=== PATIENT | male | born 1980 | race Caucasian/White ===

== ENCOUNTER 2017-04-29 19:20 | Emergency (ER) | payer OTHER ==
--- NOTE | 2017-04-29 21:11 | ED Physician Chart ---
ED Chief Complaint/HPI - Patient Information Date Seen:: 04/29/17 Time Seen:: 20:30 Chief Complaint:: Right forearm redness, pain and swelling History of Present Illness:: 36 yo male has right forearm distal posterior focal erythema and itchiness for 5 days, pain and swelling for 2 days. The erythema and swelling has extended to right dorsal hand. Allergies:: Allergies Allergy/AdvReac Type Severity Reaction Status Date / Time No Known Allergies Allergy Verified 04/29/17 19:48 Vitals:: Vital Signs - 8 hr 04/29/17 04/29/17 04/29/17 19:30 20:28 21:01 Temp 98.1 F HR 77 70 73 RR 18 18 18 BP 124/66 117/68 117/68 O2 Sat % 96 94 97 Historian:: Patient ED Review of Systems - Review of Systems General/Constitutional: No fever Skin: Skin lesions Head: No headache Eyes: Pain ENT: No nasal drainage Neck: No neck pain Cardio Vascular: No chest pain Pulmonary: No SOB GI: No nausea, No vomiting G/U: No frequency Musculoskeletal: Other (right distal forearm pain) Psychiatric: No prior psych history Hematopoietic: No bruising Neurological: No headache ED Past Medical History - Past Medical History Past Medical History: No significant medical hx Surgical History: None Family Medical History - Family Member Mother History Unknown: Yes ED Physical Exam - Physical Examination Head: Atraumatic Eyes: PERRL, EOMI Other Skin comments:: Right distal posterior radial forearm focal erythema, swelling, warmness, firmness and tenderness. The erythema and swelling extend to right dorsal hand. There is no apparent abscess formation yet. Neck: Full ROM w/o pain Respiratory: Clear to Auscultation, No Wheeze/Rhonchi/Rales Cardio Vascular: RRR, No murmur, gallop, rubs, NL S1 S2 GI: No tenderness/rebounding/guarding Neuro/Psych: Alert/oriented Misc: Normal back ED Assessment - Assessment General Assessment: Right distal forearm cellulitis Assessment/Comments:: Rocephin 2g IM x 1 Keflex 500mg PO q6h #40 Follow up PCP or return to ER if pain and/or erythema become worse ED Septic Shock - . Is Septic Shock (SBP<90, OR Lactate>4 mmol\L) present?: No - <6hrs of presentation: Vital Signs: Vital Signs - 8 hr 10/03/17 10/03/17 10/03/17 19:30 20:28 21:01 Temp 98.1 F HR 77 70 73 RR 18 18 18 BP 124/66 117/68 117/68 O2 Sat % 96 94 97 ED Discharge Plan - Patient Disposition Admit/Discharge/Transfer: PT DISCHARGED HOME Condition at Disposition: Improved Instructions: Cellulitis
== END 2017-04-29 21:08 | disposition home or self-care (01) ==
LOC: ER 19:20
DX: L03.113 Cellulitis of right upper limb (principal)
CPT/HCPCS: 99284; 96372 ×2; 36415; 87040 ×2; J1885; J0696; Z7502

== ENCOUNTER 2017-12-22 12:40 | Emergency (ER) | payer MEDICAID, OTHER ==
--- NOTE | 2017-12-22 13:18 | ED Physician Chart ---
ED Chief Complaint/HPI - Patient Information Date Seen:: 12/22/17 Time Seen:: 13:18 Chief Complaint:: EPIGASTRIC PAIN AND ALCOHOL WITHDRAWL. History of Present Illness:: THIS 37 YEAR OLD MALE HAS BEEN DFRINKING ALCOHOL HEAVILY FOR THE PAST 3 TO 4 DAYS, HE AWOKE TODAY WITH PAIN IN THE EPIGASTRIC THAT RADIATES TO HIS BACK. HE RATES THE SEVERITY OF PAINEDIT 10 OVER 10 AND THE PAIN HAS BEEN ACCOMPANIED MY AN ESTIMATEDSEVEN EPISODES OF VOMITINGAND FIVE EPISODES OF DIARRHEA.THE PATIENT HAD NO HEMATEMESISAND HE WAS UNCERTAINIF HE HAD ANY BLACK BOWEL MOVEMENTS. THE CHARACTER OF THE PAIN IS BURNING AND IT IS MADE WORSE BY VOMITING. HE ALSO COMPLAINS OF SWEATING AND TERMERS. HIS PMD HAS PROVIDED THE PATIENT WITH LIBRIUM 25 MG FOR WITHDRAWAL SYMPTOMS (BUT HE HAS RUN OUT OF HIS SUPPLY). Allergies:: Allergies Allergy/AdvReac Type Severity Reaction Status Date / Time No Known Allergies Allergy Verified 04/29/17 19:48 Vitals:: Vital Signs - 8 hr 12/22/17 12:42 Temp 98.2 F HR 81 RR 18 BP 138/101 O2 Sat % 96 Review:: Nurse's Note Reviewed (HARD COPY OF TRIAGE SHEET.) ED Review of Systems - Review of Systems General/Constitutional: No fever, No chills, Weakness (GENERALIZED WEAKNEXX), Diaphoresis, Loss of appetite Skin: No skin lesions, No rash, No bruising, Other Head: Headache, Light headed Eyes: Acuity change, No pain, No diplopia ENT: No earache, No sore throat, No tinnitus Neck: No neck pain, No swelling, No thyromegaly, No stiffness, No mass noted Cardio Vascular: No chest pain, No palpitations, No PND, No orthopnea, No edema Pulmonary: No SOB, No cough, No sputum, No wheezing GI: Nausea, No vomiting, No diarrhea, Pain, No constipation, No hematemesis G/U: No dysuria, No frequency, No nacturia Musculoskeletal: Bone or joint pain, No bone or joint pain, Back pain, No muscle pain Endocrine: No polyuria, No polydipsia Psychiatric: No prior psych history, No suicidal ideation, No homicidal ideation , No auditory hallucination, No visual hallucination Hematopoietic: No lymphadenopathy Allergic/Immuno: No urticaria, No angioedema Neurological: No syncope, Weakness, Paresthesia, Headache, No seizure, Dizziness , No dizziness, No confusion, No vertigo Family Medical History - Family Member Mother History Unknown: Yes ED Physical Exam - Physical Examination General/Constitutional: Awake, Well-developed, well-nourished, Alert, GCS 15, Ambulatory Other Gen/Cons comments:: HE CONTINUES TO COMPLAIN OF SEVERE ABDOMINAL PAIN AND CONTINUED NAUSEA. STRONG ODOR OF ALCOHOL. Head: Atraumatic Eyes: PERRL Other Eyes comments:: HYPEREMIA OF CONJUNCTIVA. AND EOM WITH NYSTAGMUS ON LATERAL GAZE. Skin: No rash, No ecchymosis, Well hydrated, No lymphadenopathy Other Skin comments:: Diaphoretic ENMT: External ears, nose nl, TM canals nl, Nasal exam nl, Lips, teeth, gums nl , Oropharynx nl Neck: Nontender, Full ROM w/o pain, No JVD, No nuchal rigidity, No mass, No stridor Respiratory: Nl effort/Exclusion, Clear to Auscultation, No Wheeze/Rhonchi/Rales Cardio Vascular: RRR, No murmur, gallop, rubs, NL S1 S2 (NO TACHYCARDIA) GI: No hernia, Normal BS's, Nondistended, No McBurney tenderness Other GI comments:: SOFT WITH MODERATE EPIGASTRIC GUARDING ABD TENDERNESS. BOWL SOUNDS PRESENT. NO LIVER OR SPLEEN PALPABLE. : No CVA tenderness Extremities: No tenderness or effusion, normal strength in all extremities, No edema, Normal digits & nails Neuro/Psych: Alert/oriented, DTR's symmetric, Normal sensory exam, Normal motor strength, Mood normal, Normal gait, No focal deficits Other Neuro/Psych comments:: MILD ATAXIA Misc: Normal back, No paraspinal tenderness ED Labs/Radiology/EKG Results - Lab Results Results: Laboratory Tests 12/22/17 12/22/17 12/22/17 14:09 14:09 14:09 WBC 4.1 L RBC 4.54 Hgb 15.2 Hct 44.2 MCV 97.4 MCH 33.6 H MCHC Differential 34.5 RDW 12.9 Plt Count 140 L MPV 8.0 Neutrophils % 54.8 Lymphocytes % 36.8 Monocytes % 7.1 Eosinophils % 0.9 Basophils % 0.4 Amylase 103 Lipase 19 CBC: UNREMARKABLE IN NO LEUKOCYTOSIS OR ANEMIA. BOTH AMYLASE AND LIPASE WERE WITHIN NORMAL PARAMETERS MAKING PANCREATITIS UNLIKELY ED Assessment - Assessment General Assessment: CASE SUMMARY: PT HAD BEEN DOING SOME HEAVY DRINKING AND CAM TO ER FOR EPIGASTRIC PAIN, NAUSEA, VOMITING AND DIARRHEA. ON EXAM PT HAD EPIGASTRIC TENDERNESS. LABS WERE USED TO RULE OUT PANCREATITIS. HIS SYMTOMS WERE ADDRESSED WITH IV NORMAL SALINE, IV ZOFRAN, AND IV MORPHINE. PT HAD ALMOST COMPLETE RELIEF IF HIS SYMPTOMS. HE WAS PROVIDED WITH REFERALS FOR ALCOHOL REHAB PROGRAMS AND WAS ENCOURAGED TO ATTEND SOME AA MEETINGS. SHE WAS TOLD TO RETURN TO THE ER IF HER SYMPTOMS RETURNED. MDM DDX FOR EPIGASTRIC PAIN: NOT PANCREATISIS BASED ON NORMAL LIPASE AND AMYLASE LEVELS. NOT PEPTIC ULCER PERFORATIONBASED ON PHYSICAL EXAM. ED Septic Shock - . Is Septic Shock (SBP<90, OR Lactate>4 mmol\L) present?: No - <6hrs of presentation: Vital Signs: Vital Signs - 8 hr 12/22/17 12:42 Temp 98.2 F HR 81 RR 18 BP 138/101 O2 Sat % 96 ED Reassessment (Disposition) - Reassessment Reassessment Condition:: Improved - Diagnosis Diagnosis:: ALCOHOLIC GASGTRITIS THE PT WAS GIVEN A RX FOR LIBRIUM 25 MG TO TAKE FOR TREMOR OR ALCOHOL WITHDRAWAL SYMPTOMS. HE WAS GIVEN THE USUAL PRECAUTIONS REGARDING DRIVING OR ACTIVITIES REQUIRING QLERTNESS. A SECOND RX WAS PROVIDED FOR NAUSEA/VOMITING ZOFRAN 8 MG TABLETS. HE WAS FURTHER ADVISED TO AVOID NSAIDS. ED Discharge Plan - Patient Disposition Admit/Discharge/Transfer: PT DISCHARGED HOME Instructions: Gastritis, Adult, [id number], Alcohol Withdrawal, Alcohol Problems
[2017-12-22] MEDS ORDERED: Morphine Sulfate 4 mg/mL 1mL Syr IVP ONE (13:36)
[2017-12-22] MEDS ORDERED: Sodium Chloride 0.9% 1,000 ML IV SCH (13:45)
[2017-12-22] MEDS ORDERED: Morphine Sulfate 4 mg/mL 1mL Syr ONE ×2 (14:21)
[2017-12-22 14:43] LABS: % BASOPHILS 0.4 % (0.0-2.0); % EOSINOPHILS 0.9 % (0.0-5.0); % LYMPHOCYTES 36.8 % (20.0-50.0); % MONOCYTES 7.1 % (2.0-10.0); % NEUTROPHILS 54.8 % (40.0-80.0); HEMATOCRIT 44.2 % (41.0-60); HEMOGLOBIN 15.2 gm/dL (12-16); LYMPHOCYTE ABSOLUTE 1.5 Th/cmm (1.5-3.0); MEAN CELL VOLUME 97.4 fl (80-99); MEAN CORPUSCULAR HEMOGLOBIN 33.6 pg (26.0-30.0); MEAN CORPUSCULAR HGB CONC 34.5 pg (28.0-36.0); MONOCYTE ABSOLUTE 0.3 Th/cmm (0.3-1.0); NEUTROPHILE ABSOLUTE 2.3 Th/cmm (1.8-8.0); PLATELET COUNT 140 Th/cmm (150-400); RED BLOOD COUNT 4.54 Mil/cmm (4.30-5.70); RED CELL DISTRIBUTION WIDTH 12.9 % (11.5-20.0); WHITE BLOOD COUNT 4.1 Th/cmm (4.8-10.8)
== END 2017-12-22 16:45 | disposition home or self-care (01) ==
LOC: ER 12:40
DX: K29.20 Alcoholic gastritis without bleeding (principal)
CPT/HCPCS: 99284; 96374; 96375; 36415; 85025; 82150; 83690; J2405; J7030; Z7502; Z7610

== ENCOUNTER 2018-03-04 11:48 | Inpatient (IN) | payer MEDICAID ==
[2018-03-04] MEDS ORDERED: Sodium Chloride 0.9% 1,000 ML IV ONE (12:01)
--- NOTE | 2018-03-04 12:07 | ED Physician Chart ---
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 Pain, A/N/V/D/C, bleeding, fever, chills, or urinary s/s Allergies:: Allergies Allergy/AdvReac Type Severity Reaction Status Date / Time No Known Allergies Allergy Verified 04/29/17 19:48 Historian:: Patient, EMS Review:: Nurse's Note Reviewed, EMS run form Reviewed ED Review of Systems - Review of Systems General/Constitutional: No fever, No chills, No weight loss, No weakness, No diaphoresis, No edema, No loss of appetite Skin: No skin lesions, No rash, No bruising Head: No headache, No light-headedness Eyes: No loss of vision, No pain, No diplopia ENT: No earache, No nasal drainage, No sore throat, No tinnitus Neck: No neck pain, No swelling, No thyromegaly, No stiffness, No mass noted Cardio Vascular: No chest pain, No palpitations, No PND, No orthopnea, No edema Pulmonary: No SOB, No cough, No sputum, No wheezing GI: No nausea, No vomiting, No diarrhea, No pain, No melena, No hematochezia, No constipation, No hematemesis G/U: No dysuria, No frequency, No hematuria, No nacturia Musculoskeletal: No bone or joint pain, No back pain, No muscle pain Endocrine: No polyuria, No polydipsia Psychiatric: No prior psych history, No depression, No anxiety, No suicidal ideation, No homicidal ideation, No auditory hallucination, No visual hallucination Hematopoietic: No bruising, No lymphadenopathy Allergic/Immuno: No urticaria, No angioedema Neurological: No syncope, No focal symptoms, No weakness, No paresthesia, No headache, No seizure, No dizziness, No confusion, No vertigo ED Past Medical History - Past Medical History Obtainable: Yes Past Medical History: No significant medical hx Family History: HTN Social History: Smoker, Alcohol, No Drug Use, Single Surgical History: None Psychiatricy History: None Medication: Reviewed Family Medical History - Family Member Mother History Unknown: Yes ED Physical Exam - Physical Examination General/Constitutional: Awake, Well-developed, well-nourished, Alert, No distress, GCS 15, Non-toxic appearing, Ambulatory Head: Atraumatic Eyes: Lids, conjuctiva normal, PERRL, EOMI Skin: Nl inspection, No rash, No skin lesions, No ecchymosis, Well hydrated, No lymphadenopathy ENMT: External ears, nose nl, TM canals nl, Nasal exam nl, Lips, teeth, gums nl , Oropharynx nl, Tonsils nl Neck: Nontender, Full ROM w/o pain, No JVD, No nuchal rigidity, No bruit, No mass, No stridor Respiratory: Nl effort/Exclusion, Clear to Auscultation, No Wheeze/Rhonchi/Rales Cardio Vascular: RRR, No murmur, gallop, rubs, NL S1 S2, Carotid/Femoral/Distal pulses equal bilaterally GI: No tenderness/rebounding/guarding, No organomegaly, No hernia, Normal BS's, Nondistended, No mass/bruits, No McBurney tenderness, Rectum exam nl : No CVA tenderness Extremities: No tenderness or effusion, Full ROM, normal strength in all extremities, No edema, Normal digits & nails Neuro/Psych: Alert/oriented, DTR's symmetric, Normal sensory exam, Normal motor strength, Judgement/insight normal, Mood normal, Normal gait, No focal deficits Misc: Normal back, No paraspinal tenderness ED Labs/Radiology/EKG Results - Lab Results Comments:: Reviewed - Radiology Results Comments:: NAD - EKG Interpretations EKG Time:: 12:55 Rate & Rhythm: 103; ST; PAT Comments:: RBBB; T-Wave Inversions ED Septic Shock - . Is Septic Shock (SBP<90, OR Lactate>4 mmol\L) present?: No ED Reassessment (Disposition) - Reassessment Reassessment Condition:: Improved - Diagnosis Diagnosis:: Dx: ALOC; AMS; ETOH Abuse and Withdrawal; Hyponatremia; Tachycardia; Cardiac Arrythmias; Myocardial Ischemia; Alcohol Intoxication - Aftercare/Follow up Instructions Aftercare/Follow-Up Instructions:: Counseled pt regarding lab results/diagnosis & need follow up, Counseled pt & family regarding lab results/diagnosis & need follow up - Patient Disposition Discharge/Transfer:: Acute Care w/in this hosp Accepting Physician:: Dr. Arnold Time Called:: [phone] Time Responded:: 13:45 Admitted to:: Telemetry Spoke to:: Dr. Arnold Admitting Medical Physician:: Dr. Arnold Condition at Disposition:: Stable, Improved
[2018-03-04] MEDS ORDERED: Multivitamin Inj 10 ML, Thiamine HCL 100 MG, Magnesium Sulfate 2 GM, Folic Acid 1 MG in... IV ONE (13:00)
[2018-03-04 13:13] LABS: ALB/GLOB RATIO 1.9 (1.0-1.8); ALBUMIN 4.7 gm/dL (4.2-5.5); ALKALINE PHOSPHATASE 89 U/L (34-104); ANION GAP 18.7 (7.0-16.0); BILIRUBIN,TOTAL 1.1 mg/dL (0.3-1.0); BUN - UREA NITROGEN 16 mg/dL (7-25); CALCIUM SERUM 8.9 mg/dL (8.6-10.3); CARBON DIOXIDE 21.9 mEq/L (21.0-31.0); CHLORIDE 95 mEq/L (98-107); CREATININE - SERUM 0.8 mg/dL (0.7-1.3); GFR AFRICAN-AMERICAN > 60.0 ml/min (>90); GFR NON AFRICAN-AMERICAN > 60.0 ml/min; GLUCOSE 77 mg/dL (70-105); POTASSIUM SERUM 3.6 mEq/L (3.5-5.1); SGOT 186 U/L (13-39); SGPT/ALT 109 U/L (7-52); SODIUM SERUM 132 mEq/L (136-145); TOTAL PROTEIN,SERUM 7.2 gm/dL (6.0-8.3)
[2018-03-04 14:49] LABS: AMPHETAMINE URINE NEGATIVE (NEGATIVE); BARBITURATES URINE NEGATIVE (NEGATIVE); BENZODIAZEPINES QUAL URINE NEGATIVE (NEGATIVE); CANNABINOID THC NEGATIVE (NEGATIVE); COCAINE METABOLITE QUAL URINE NEGATIVE (NEGATIVE); METHADONE URINE NEGATIVE (NEGATIVE); METHAMPHETAMINES QUAL URINE NEGATIVE (NEGATIVE); OPIATES (MORPHINE) QUAL. URINE NEGATIVE (NEGATIVE); PHENCYCLIDINE (PCP) URINE NEGATIVE (NEGATIVE); TRICYCLICS (TCA) QUAL. URINE NEGATIVE (NEGATIVE)
[2018-03-04 16:37] LABS: WHITE BLOOD COUNT 5.6 Th/cmm (4.8-10.8)
[2018-03-04 16:38] LABS: HEMOGLOBIN 17.5 gm/dL (12-16); MEAN CELL VOLUME 98.9 fl (80-99); MEAN CORPUSCULAR HEMOGLOBIN 33.9 pg (26.0-30.0); MEAN CORPUSCULAR HGB CONC 34.3 pg (28.0-36.0); MEAN PLATELET VOLUME 9.2 fl; PLATELET COUNT 126 Th/cmm (150-400); RED BLOOD COUNT 5.16 Mil/cmm (4.30-5.70); RED CELL DISTRIBUTION WIDTH 12.7 % (11.5-20.0)
[2018-03-04 16:43] LABS: % BASOPHILS 1.5 % (0.0-2.0); % EOSINOPHILS 0.2 % (0.0-5.0); % MONOCYTES 8.6 % (2.0-10.0); % NEUTROPHILS 61.7 % (40.0-80.0)
--- NOTE | 2018-03-04 16:49 | History and Physical ---
History of Present Illness - HPI Chief Complaint: Tremors HPI: 37 y/o male who presents to [facility] for suddent onset of tremors and shakiness lasting for the past 3 hours. Patient presents with a history of ETOH abuse and his last drink was 12 hours ago. pt denies trauma, H /As, neck pain, C/P, cough, SOB, Abd. Pain, A/N/V/D/C, bleeding, fever, chills, or urinary s/s In the ER patient had labwork done which revealed the following..... WBC 5.6 H/H 17.5/51.0 platelets 126K Na 132 K 3.6 Bun/Cr 16/0.8 glu 77 AST 186 ALT 106 Alk Phos 89 UDS + ETOH 156 Vital Signs: Last Vital Signs Temp 98.3 F 03/04/18 15:31 Pulse 84 03/04/18 15:31 Resp 16 03/04/18 15:31 BP 146/94 03/04/18 15:31 Pulse Ox 99 03/04/18 15:31 Past Medical History Cardiovascular: Report: No Pertinent Hx Pulmonary: Report: No Pertinent Hx TRAFFIC CONTROL FLAGGER: Report: No Pertinent Hx GI: Report: No Pertinent Hx Psych: Report: No Pertinent Hx Musculoskeletal: Report: No Pertinent Hx Rheumatologic: Report: No pertinent Hx Infectious Disease: Report: No Pertinent Hx Renal/: Report: No Pertinent Hx Endocrine: Report: No Pertinent Hx Dermatology: Report: No Pertinent Hx - Past Surgical History Past Surgical History: No pertinent Hx Family Medical History - Family Member Mother History Unknown: Yes Social History Smoke: No Alcohol: Other (H/o Alcohol abuse) Drugs: None Lives: Alone - Medications Home Medications: Home Medication Medication Instructions Recorded Type NK [No Home Meds] 03/04/18 History - Allergies Allergies/Adverse Reactions: Allergies Allergy/AdvReac Type Severity Reaction Status Date / Time No Known Allergies Allergy Verified 04/29/17 19:48 Review of Systems - Review of Systems Constitutional: Report: No Significant Eyes: Report: No Significant ENT: Report: No Significant Respiratory: Report: No Significant Cardiovascular: Report: No Significant Gastrointestinal: Report: No Significant Genitourinary: Report: No Significant Musculoskeletal: Report: No Significant Skin: Report: No Significant Neurological: Report: No Significant Physical Exam - Physical Exam HEENT: Report: Ears Nose Throat within normal limits, Pharnyx within normal limits Neck: Report: Within normal limits Cardiovascular Systems: Report: +s1/s2 noted, Regular, Rate and Rhythm Respiratory: Report: Breath Sounds are within normal limits Abdomen: Report: Non-tender to palpation Back: Report: Inspection of back is within normal limits. Extremities: Report: Non-tender to palpation. Skin: Report: Color of skin is within normal limits - Lab Results All Lab Results last 24 hours: Laboratory Results - last 24 hr 03/04/18 03/04/18 03/04/18 12:13 12:13 14:04 WBC 5.6 RBC 5.16 Hgb 17.5 Hct 51.0 MCV 98.9 MCH 33.9 H MCHC Differential 34.3 RDW 12.7 Plt Count 126 L MPV 9.2 Neutrophils % 61.7 Lymphocytes % 28.0 Monocytes % 8.6 Eosinophils % 0.2 Basophils % 1.5 Sodium 132 L Potassium 3.6 Chloride 95 L Carbon Dioxide 21.9 Anion Gap 18.7 H BUN 16 Creatinine 0.8 Est GFR ( Amer) > 60.0 Est GFR (Non-Af Amer) > 60.0 BUN/Creatinine Ratio 20.0 Glucose 77 Calcium 8.9 Total Bilirubin 1.1 H AST 186 H ALT 109 H Alkaline Phosphatase 89 Total Protein 7.2 Albumin 4.7 Globulin 2.5 Albumin/Globulin Ratio 1.9 H Urine Opiates Screen NEGATIVE Urine Methadone Screen NEGATIVE Ur Barbiturates Screen NEGATIVE Ur Tricyclics Screen NEGATIVE Ur Phencyclidine Scrn NEGATIVE Amphetamines Screen NEGATIVE U Methamphetamines Scrn NEGATIVE U Benzodiazepines Scrn NEGATIVE U Cocaine Metab Screen NEGATIVE U Cannabinoids Screen NEGATIVE Ethyl Alcohol 151 H - Assessment Assessment: Current Active Problems Problem Status Onset ABDOMINAL PAIN, ANXIETY AND SHAKINESS Acute Alcohol withdrawals ETOH abuse hyponatremia hepatitis - Plan Plan: Will keep patient NPO order IV fluids Ativan IV PRN agitation repeat labwork tomorrow ETOH level in the morning
[2018-03-04 16:52] VITALS: BP 135/88
[2018-03-04] MEDS: D5-0.9%NS 1,000 ML IV SCH (22:39)
[2018-03-05 05:00] LABS: % BASOPHILS 0.4 % (0.0-2.0); % EOSINOPHILS 1.9 % (0.0-5.0); % LYMPHOCYTES 41.3 % (20.0-50.0); % MONOCYTES 10.7 % (2.0-10.0); % NEUTROPHILS 45.7 % (40.0-80.0); EOSINOPHILE ABSOLUTE 0.1 Th/cmm (0.1-0.4); HEMATOCRIT 47.8 % (41.0-60); HEMOGLOBIN 16.1 gm/dL (12-16); LYMPHOCYTE ABSOLUTE 1.5 Th/cmm (1.5-3.0); MEAN CELL VOLUME 96.5 fl (80-99); MEAN CORPUSCULAR HEMOGLOBIN 32.6 pg (26.0-30.0); MEAN CORPUSCULAR HGB CONC 33.8 pg (28.0-36.0); MEAN PLATELET VOLUME 8.6 fl; MONOCYTE ABSOLUTE 0.4 Th/cmm (0.3-1.0); NEUTROPHILE ABSOLUTE 1.7 Th/cmm (1.8-8.0); PLATELET COUNT 105 Th/cmm (150-400); RED BLOOD COUNT 4.95 Mil/cmm (4.30-5.70); RED CELL DISTRIBUTION WIDTH 12.8 % (11.5-20.0); WHITE BLOOD COUNT 3.7 Th/cmm (4.8-10.8)
[2018-03-05 05:47] LABS: ALB/GLOB RATIO 1.8 (1.0-1.8); ALKALINE PHOSPHATASE 70 U/L (34-104); ANION GAP 12.2 (7.0-16.0); BILIRUBIN,TOTAL 1.8 mg/dL (0.3-1.0); BUN - UREA NITROGEN 13 mg/dL (7-25); CALCIUM SERUM 8.2 mg/dL (8.6-10.3); CARBON DIOXIDE 25.6 mEq/L (21.0-31.0); CHLORIDE 100 mEq/L (98-107); CREATININE - SERUM 0.8 mg/dL (0.7-1.3); GFR AFRICAN-AMERICAN > 60.0 ml/min (>90); GFR NON AFRICAN-AMERICAN > 60.0 ml/min; GLUCOSE 85 mg/dL (70-105); POTASSIUM SERUM 3.8 mEq/L (3.5-5.1); SGOT 104 U/L (13-39); SGPT/ALT 79 U/L (7-52); SODIUM SERUM 134 mEq/L (136-145); TOTAL PROTEIN,SERUM 6.2 gm/dL (6.0-8.3)
[2018-03-05 06:16] LABS: INR 1.32 (0.5-1.4); PROTHROMBIN TIME (TEST) 13.5 SECONDS (9.5-11.5)
[2018-03-05 12:19] LABS: HEP A AB IGM Negative (Negative); HEP B CORE IGM Negative (Negative); HEP B SURFACE AG QL Negative (Negative); HEP C ANTIBODY 0.1 s/co ratio (0.0-0.9)
[2018-03-05] MEDS ORDERED: Diphenoxylate/Atropine 2.5mg Tab PO PRN (14:31)
[2018-03-05] MEDS: D5-0.9%NS 1,000 ML IV SCH (22:56)
--- NOTE | 2018-03-06 05:51 | General Progress Note ---
Subjective - Review of Systems Service Date: 03/06/18 Subjective: Patient was seen and examined. Complains of some epigastric pain. has some tremors. Unable to sleep at night. Objective - Results Result Diagrams: 03/05/18 04:30 03/05/18 04:30 Recent Labs: Laboratory Last Values WBC 3.7 Th/cmm (4.8-10.8) L 03/05/18 04:30 RBC 4.95 Mil/cmm (4.30-5.70) 03/05/18 04:30 Hgb 16.1 gm/dL (12-16) 03/05/18 04:30 Hct 47.8 % (41.0-60) 03/05/18 04:30 MCV 96.5 fl (80-99) 03/05/18 04:30 MCH 32.6 pg (26.0-30.0) H 03/05/18 04:30 MCHC Differential 33.8 pg (28.0-36.0) 03/05/18 04:30 RDW 12.8 % (11.5-20.0) 03/05/18 04:30 Plt Count 105 Th/cmm (150-400) L 03/05/18 04:30 MPV 8.6 fl 03/05/18 04:30 Neutrophils % 45.7 % (40.0-80.0) 03/05/18 04:30 Lymphocytes % 41.3 % (20.0-50.0) 03/05/18 04:30 Monocytes % 10.7 % (2.0-10.0) H 03/05/18 04:30 Eosinophils % 1.9 % (0.0-5.0) 03/05/18 04:30 Basophils % 0.4 % (0.0-2.0) 03/05/18 04:30 PT 13.5 SECONDS (9.5-11.5) H 03/05/18 05:45 INR 1.32 (0.5-1.4) 03/05/18 05:45 Sodium 134 mEq/L (136-145) L 03/05/18 04:30 Potassium 3.8 mEq/L (3.5-5.1) 03/05/18 04:30 Chloride 100 mEq/L (98-107) 03/05/18 04:30 Carbon Dioxide 25.6 mEq/L (21.0-31.0) 03/05/18 04:30 Anion Gap 12.2 (7.0-16.0) 03/05/18 04:30 BUN 13 mg/dL (7-25) 03/05/18 04:30 Creatinine 0.8 mg/dL (0.7-1.3) 03/05/18 04:30 Est GFR ( Amer) > 60.0 ml/min (>90) 03/05/18 04:30 Est GFR (Non-Af Amer) > 60.0 ml/min 03/05/18 04:30 BUN/Creatinine Ratio 16.3 03/05/18 04:30 Glucose 85 mg/dL (70-105) 03/05/18 04:30 Calcium 8.2 mg/dL (8.6-10.3) L 03/05/18 04:30 Total Bilirubin 1.8 mg/dL (0.3-1.0) H 03/05/18 04:30 AST 104 U/L (13-39) H 03/05/18 04:30 ALT 79 U/L (7-52) H 03/05/18 04:30 Alkaline Phosphatase 70 U/L (34-104) 03/05/18 04:30 Total Protein 6.2 gm/dL (6.0-8.3) 03/05/18 04:30 Albumin 4.0 gm/dL (4.2-5.5) L 03/05/18 04:30 Globulin 2.2 gm/dL 03/05/18 04:30 Albumin/Globulin Ratio 1.8 (1.0-1.8) 03/05/18 04:30 Urine Opiates Screen NEGATIVE (NEGATIVE) 03/04/18 14:04 Urine Methadone Screen NEGATIVE (NEGATIVE) 03/04/18 14:04 Ur Barbiturates Screen NEGATIVE (NEGATIVE) 03/04/18 14:04 Ur Tricyclics Screen NEGATIVE (NEGATIVE) 03/04/18 14:04 Ur Phencyclidine Scrn NEGATIVE (NEGATIVE) 03/04/18 14:04 Amphetamines Screen NEGATIVE (NEGATIVE) 03/04/18 14:04 U Methamphetamines Scrn NEGATIVE (NEGATIVE) 03/04/18 14:04 U Benzodiazepines Scrn NEGATIVE (NEGATIVE) 03/04/18 14:04 U Cocaine Metab Screen NEGATIVE (NEGATIVE) 03/04/18 14:04 U Cannabinoids Screen NEGATIVE (NEGATIVE) 03/04/18 14:04 Ethyl Alcohol < 10 mg/dL (0-10) 03/05/18 04:30 Hepatitis A IgM Ab Negative (Negative) 03/04/18 17:15 Hep Bs Antigen Negative (Negative) 03/04/18 17:15 Hep B Core IgM Ab Negative (Negative) 03/04/18 17:15 Hepatitis C Antibody 0.1 s/co ratio (0.0-0.9) 03/04/18 17:15 - Physical Exam Vitals and I&O: Vital Signs Temp 97.7 F 03/06/18 04:00 Pulse 67 03/06/18 04:00 Resp 18 03/06/18 04:00 BP 108/72 03/06/18 04:00 Pulse Ox 98 03/06/18 04:00 Intake & Output 03/05/18 03/05/18 03/06/18 06:59 18:59 06:59 Intake Total 2800 200 Balance 2800 200 Weight (lbs) 86.183 kg 86.183 kg 86.455 kg Intake: Intake, IV Amount 1000 D5-0.9%Ns 1,000 ml @ 50 1000 mls/hr IV .Q20H KEY Rx#: [id number] Oral 1800 200 Other: # Voids 4 5 3 # Bowel Movements 3 Weight Source Bedscale Bedscale Bedscale Active Medications: Current Medications Diazepam (Valium) 5 mg PO DAILY PRN; Protocol PRN Reason: Agitation Stop: 05/04/18 06:04 Last Admin: 03/05/18 08:19 Dose: 5 mg Diphenoxylate HCl/Atropine (Lomotil) 2.5 tab PO TID PRN PRN Reason: Diarrhea Stop: 05/04/18 14:30 Last Admin: 03/05/18 15:02 Dose: 1 tab Dextrose/Sodium Chloride (D5-0.9%Ns) 1,000 mls @ 50 mls/hr IV .Q20H KEY Stop: 05/03/18 16:16 Last Admin: 03/05/18 22:56 Dose: 50 mls/hr Lorazepam (Ativan) 1 mg IVP Q4HR PRN; Protocol PRN Reason: Anxiety Stop: 10/07/18 16:16 Last Admin: 03/05/18 21:30 Dose: 1 mg Ondansetron HCl (Zofran) 4 mg IV Q4H PRN PRN Reason: Nausea / Vomiting Stop: 05/04/18 06:04 Last Admin: 03/05/18 08:19 Dose: 4 mg General: Alert, Oriented x3 HEENT: Atraumatic, PERRLA, EOMI Neck: Supple, JVD Cardiovascular: Regular rate, Normal S1, Normal S2 Lungs: Clear to auscultation Abdomen: Bowel sounds, Soft, no Tender Extremities: no Clubbing, no Cyanosis, no Edema Neurological: Normal gait, Normal speech - Procedures Procedures: Procedures Procedure Code Date DRAIN EXTERNAL EAR LESION 98518 06/25/96 EXTERNAL EAR INCIS NEC 18.06/25/96 Assessment/Plan - Problem List Patient Problems: All Active Problems ABDOMINAL PAIN, ANXIETY AND SHAKINESS (Acute) - Assessment Assessment: Current Active Problems Problem Status Onset ABDOMINAL PAIN, ANXIETY AND SHAKINESS Acute Alcohol withdrawals ETOH abuse hyponatremia alcoholic hepatitis - Plan Plan: regular diet Ativan PO will add Diazepam ETOH level now normal
[2018-03-06] MEDS: D5-0.9%NS 1,000 ML IV SCH (09:53)
--- NOTE | 2018-03-08 08:34 | Discharge Summary ---
DATE OF DISCHARGE: 03/06/2018 PRELIMINARY DIAGNOSES: 1. Alcohol abuse. 2. Alcohol withdrawal. 3. Hyponatremia. 4. Alcoholic hepatitis. DISCHARGE DIAGNOSES: 1. Alcohol abuse. 2. Alcohol withdrawal. 3. Hyponatremia. 4. Alcoholic hepatitis. BRIEF HISTORY OF PRESENT ILLNESS: This is a 37-year-old male who presents to [facility] ER for sudden onset of tremors and shakiness lasting for the past 3 hours. The patient has a history of alcohol abuse. His last drink was about 12 hours ago. Denied any trauma, any falls, any headaches. Denies any neck pain, chest pain, shortness of breath, abdominal pain, nausea, vomiting, diarrhea, or constipation. Denies any bleeding, fever or chills. The patient was initially evaluated in the ER and seen by the ER physician. Lab work initially came back a white count normal at 5.6, hemoglobin 17.5, hematocrit 51, and platelets 126. Sodium was 132, potassium 3.6, BUN and creatinine were 16/0.8, and glucose 77. His AST was 186, ALT was 106, alkaline phosphatase 89. Urine drug screen was negative. His alcohol level was 156. The patient subsequently admitted for alcohol intoxication presenting with alcohol withdrawals. HOSPITAL COURSE: The patient improved during his hospital stay, repeat lab work done showed that his alcohol level back to normal, less than 10. Liver enzymes slowly improved with AST beginning at 186 and had dropped down to 104, ALT was 109 initially, now 79. The patient was given Ativan for withdrawal along with Librium to long-acting for tremors. The patient was able to tolerate a regular diet without any nausea and vomiting, was eventually discharged in stable condition, to follow up with his regular doctor in 3 or 5 days. The patient was given a prescription for Librium to take for the next week or two. JOB# [id number]
== END 2018-03-06 11:45 | disposition home or self-care (01) | DRG 280 ==
LOC: ER 11:48 → MSI 15:00
PROVIDERS: ADMIT Family Medicine; ATTEND Family Medicine
DX: K70.10 Alcoholic hepatitis without ascites (principal); E87.1 Hypo-osmolality and hyponatremia; F10.129 Alcohol abuse with intoxication, unspecified; Y90.6 Blood alcohol level of 120-199 mg/100 ml; I25.9 Chronic ischemic heart disease, unspecified; Z60.2 Problems related to living alone; Z82.49 Family history of ischemic heart disease and other diseases of the circulatory system; Z79.899 Other long term (current) drug therapy; Z79.1 Long term (current) use of non-steroidal anti-inflammatories (NSAID); Z79.2 Long term (current) use of antibiotics
CPT/HCPCS: 36415-UA; 80053-TC; 80074-90; 80307; 80320-TC; 85025-TC; 85610-TC; J2060; J2405; J3411; J3475; J7030; J7042; X6598

== ENCOUNTER 2018-04-28 08:24 | Emergency (ER) | payer SELFPAY ==
--- NOTE | 2018-04-28 15:47 | ED Physician Chart ---
ED Chief Complaint/HPI - Patient Information Date Seen:: 04/28/18 Time Seen:: 08:30 Chief Complaint:: Anxiety History of Present Illness:: onset x one hour of anxiousness and shakiness; pt's last ETOH beverage was 12 hours [employer]; pt is eating and is urinating well; pt last urinated 1/2 hour [employer] CO[employer]; pt denies trauma, LOC, ALOC, AMS, H/As, S/T, neck pain, cough, C/P, SOB, Abd. Pain, A/N/V/D/C, fever, chills, or urinary s/s Allergies:: Allergies Allergy/AdvReac Type Severity Reaction Status Date / Time No Known Allergies Allergy Verified 04/29/17 19:48 Vitals:: Vital Signs - 8 hr 04/28/18 08:36 Temp 96.4 F HR 109 RR 16 BP 144/105 O2 Sat % 96 Historian:: Patient, Family Member Review:: Nurse's Note Reviewed ED Review of Systems - Review of Systems General/Constitutional: No fever, No chills, No weight loss, No weakness, No diaphoresis, No edema, No loss of appetite Skin: No skin lesions, No rash, No bruising Head: No headache, No light-headedness Eyes: No loss of vision, No pain, No diplopia ENT: No earache, No nasal drainage, No sore throat, No tinnitus Neck: No neck pain, No swelling, No thyromegaly, No stiffness, No mass noted Cardio Vascular: No chest pain, No palpitations, No PND, No orthopnea, No edema Pulmonary: No SOB, No cough, No sputum, No wheezing GI: No nausea, No vomiting, No diarrhea, No pain, No melena, No hematochezia, No constipation, No hematemesis G/U: No dysuria, No frequency, No hematuria, No nacturia Musculoskeletal: No bone or joint pain, No back pain, No muscle pain Endocrine: No polyuria, No polydipsia Psychiatric: No prior psych history, No depression, Anxiety, No suicidal ideation, No homicidal ideation, No auditory hallucination, No visual hallucination Hematopoietic: No bruising, No lymphadenopathy Allergic/Immuno: No urticaria, No angioedema Neurological: No syncope, No focal symptoms, No weakness, No paresthesia, No headache, No seizure, No dizziness, No confusion, No vertigo ED Past Medical History - Past Medical History Obtainable: Yes Past Medical History: No significant medical hx Family History: HTN Social History: Non Smoker, Alcohol, No Drug Use, Single Surgical History: None Psychiatricy History: None Medication: Reviewed Family Medical History - Family Member Mother History Unknown: Yes ED Physical Exam - Physical Examination General/Constitutional: Awake, Well-developed, well-nourished, Alert, No distress, GCS 15, Non-toxic appearing, Ambulatory Head: Atraumatic Eyes: Lids, conjuctiva normal, PERRL, EOMI Skin: Nl inspection, No rash, No skin lesions, No ecchymosis, Well hydrated, No lymphadenopathy ENMT: External ears, nose nl, TM canals nl, Nasal exam nl, Lips, teeth, gums nl , Oropharynx nl, Tonsils nl Neck: Nontender, Full ROM w/o pain, No JVD, No nuchal rigidity, No bruit, No mass, No stridor Other Neck comments:: Supple; no meningeal signs; no cervical tenderness; no bruits Respiratory: Nl effort/Exclusion, Clear to Auscultation, No Wheeze/Rhonchi/Rales Cardio Vascular: RRR, No murmur, gallop, rubs, NL S1 S2, Carotid/Femoral/Distal pulses equal bilaterally GI: No tenderness/rebounding/guarding, No organomegaly, No hernia, Normal BS's, Nondistended, No mass/bruits, No McBurney tenderness, Rectum exam nl Other GI comments:: no pulsatile masses; good BS : No CVA tenderness Extremities: No tenderness or effusion, Full ROM, normal strength in all extremities, No edema, Normal digits & nails Neuro/Psych: Alert/oriented, DTR's symmetric, Normal sensory exam, Normal motor strength, Judgement/insight normal, Mood normal, Normal gait, No focal deficits Other Neuro/Psych comments:: no focal signs Misc: Normal back, No paraspinal tenderness ED Labs/Radiology/EKG Results - Lab Results Comments:: deferred by pt - Radiology Results Comments:: deferred by pt - EKG Interpretations Comments:: deferred by pt ED Septic Shock - . Is Septic Shock (SBP<90, OR Lactate>4 mmol\L) present?: No - <6hrs of presentation: Vital Signs: Vital Signs - 8 hr 04/28/18 08:36 Temp 96.4 F HR 109 RR 16 BP 144/105 O2 Sat % 96 ED Reassessment (Disposition) - Reassessment Reassessment:: pt tolerated po fluids well in ER; pt refused further evaluation and chose to sign out AMA; pt is asymptomatic upon discharge Reassessment Condition:: Improved - Diagnosis Diagnosis:: Alcohol Abuse; Alcohol Withdrawal; Anxiety Disorder - Aftercare/Follow up Instructions Aftercare/Follow-Up Instructions:: Counseled pt regarding lab results/diagnosis & need follow up, Refer to Discharge Instructions, Counseled pt & family regarding lab results/diagnosis & need follow up - Patient Disposition Discharge/Transfer:: Against Medical Advice Condition at Disposition:: Stable, Improved (RTER prn if existing s/s reoccur and/or get worse and/or any other new s/s occur; ACIs given for all above Dx; Refer to Neurologist/Psychiatrist/Cnc Cutting Operator RICHIE; Refer to AA/[facility] RICHIE ; F/U with PMD Today or prn; RTER prn if concerned)
== END 2018-04-28 08:50 | disposition home or self-care (01) ==
LOC: ER 08:24
DX: F41.9 Anxiety disorder, unspecified (principal); F10.239 Alcohol dependence with withdrawal, unspecified
CPT/HCPCS: Z7502